=== PATIENT | male | born 1930 | race Asian ===

== ENCOUNTER 2017-05-31 16:14 | Emergency (ER) | payer OTHER, MEDICARE ==
[2017-05-31 16:41] VITALS: BP 138/87
[2017-05-31 17:16] LABS: Basophils % (Auto) 0.5 % (0.0-1.8); Eosinophils % (Auto) 0.8 % (0.0-4.3); Hematocrit 40.9 % (35.5-45.6); Hemoglobin 13.9 gm/dl (11.8-15.2); Mean Corpuscular HGB Conc 34 % (32-34); Mean Corpuscular Hemoglobin 31 pg (28-32); Mean Corpuscular Volume 90 fl (84-94); Platelet Count 172 K/mm3 (140-440); Red Blood Count 4.53 M/mm3 (3.65-5.03); Red Cell Distribution Width 12.9 % (13.2-15.2); White Blood Count 4.8 K/mm3 (4.5-11.0)
[2017-05-31 17:31] LABS: Anion Gap 19 mmol/L; Blood Urea Nitrogen 12 mg/dL (9-20); Calcium 9.3 mg/dL (8.4-10.2); Carbon Dioxide 23 mmol/L (22-30); Chloride 94.4 mmol/L (98-107); Glucose 102 mg/dL (75-100); Potassium 3.9 mmol/L (3.6-5.0); Sodium 132 mmol/L (137-145)
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
[2017-05-31] MEDS: TYLENOL PO ONE (18:17)
[2017-05-31] MEDS: ZOFRAN ODT PO ONE (18:17)
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
== END 2017-05-31 19:27 | disposition home or self-care (01) ==
LOC: ED 16:14
DX: M54.2 Cervicalgia (principal); I10 Essential (primary) hypertension; K21.9 Gastro-esophageal reflux disease without esophagitis; E78.00 Pure hypercholesterolemia, unspecified; Z87.891 Personal history of nicotine dependence; Z85.038 Personal history of other malignant neoplasm of large intestine; Z88.2 Allergy status to sulfonamides; V89.0XXA Person injured in unspecified motor-vehicle accident, nontraffic, initial encounter; Y93.89 Activity, other specified; Y92.89 Other specified places as the place of occurrence of the external cause; Y99.8 Other external cause status
CPT/HCPCS: 36415; 70450; 72125; 80048; 85025; 93005; 93010; 99284; Q0162

== ENCOUNTER 2017-07-24 12:42 | Day surgery (SDC) | payer MEDICARE ==
--- NOTE | 2017-07-24 13:41 | Anesthesia Consultation ---
Anesthesia Consult and Med Hx Date of service: 07/24/17 - Airway Anesthetic Teeth Evaluation: Good ROM Head & Neck: Adequate Mental/Hyoid Distance: Adequate Mallampati Class: Class I Intubation Access Assessment: Probably Good - Pulmonary Exam CTA: Yes - Cardiac Exam Cardiac Exam: RRR - Pre-Operative Health Status ASA Pre-Surgery Classification: ASA3 Proposed Anesthetic Plan: MAC - Pulmonary Hx Smoking: No Hx Sleep Apnea: Yes (wears a device that is not a cpap ) - Cardiovascular System Hx Hypertension: Yes Hx Heart Murmur: Yes - Additional Comments Anesthesia Medical History Comments: says mucus comes up, no reflux or gerd, high cholest,
--- NOTE | 2017-07-24 13:41 | Anesthesia Day of Surgery ---
Anesthesia Day of Surgery - Day of Surgery Patient Examined: Yes Patient H&P Reviewed: Yes Patient is NPO: Yes
[2017-07-24] MEDS ORDERED: WATER FOR IRRIG STERILE IR ONE (14:08)
[2017-07-24] MEDS ORDERED: NACL 0.9% 1000 ML 1,000 ML IV SCH (15:00)
[2017-07-24] MEDS ORDERED: DIPRIVAN 10 MG/ML IV ONE ×3 (15:17)
--- NOTE | 2017-07-24 15:23 | Post Anesthesia Evaluation ---
- Post Anesthesia Evaluation Patient Participated: Yes Airway Patent: Yes Stable Respiratory Function: Yes Nausea/Vomiting: No Temp > 96.8F: Yes Pain Manageable: Yes Adequeate Hydration: Yes Anesthesia Complications: No Block Receding Appropriately: Not Applicable Patient on Ventilator: No
[2017-07-24] MEDS ORDERED: XYLOCAINE MPF 2% ONE (15:30)
--- NOTE | 2017-07-24 16:07 | Operative Report ---
Operative Report Operative Report: Date of procedure: 07/24/2017 Procedure: Colonoscopy. Attending physician: Earnest Dyson MD [employer] Drawer Hand: Earnest Dyson MD Indication: Patient is a 86-year-old male who presents for colonoscopy for colorectal cancer screening. 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 He lately has had progressive constipation with bloating and intestinal gas. A colonoscopy serves to evaluate patient so that treatment may be directed based on the findings. Consent: Informed consent was obtained after advising the patient and family regarding nature of this procedure, its indications, potential benefits as well as possible complications including but not limited to bleeding perforation and adverse reaction to medication, infection as well as other cardiopulmonary complications. An informed written and verbal consent was then obtained after due opportunity was provided for questions and answers. Monitoring: Patient was monitored continuously with pulse oximetry and electrocardiographic recordings as well as blood pressure recordings. Vital signs remained stable throughout this procedure with no untoward events. Preoperative assessment: Patient was assessed immediately prior to this procedure for capacity to tolerate monitored anesthesia care and moderate sedation as well as general anesthesia. Patient's ASA classification is 2, Mallampati class is 2, Hyomental distance is 3. Instrument: Gimmien video colonoscope Medications: Propofol given intravenously in divided doses. For details please refer to anesthesia records. Description of procedure: Patient was placed in the left lateral decubitus position after achieving sedation, a digital rectal examination was performed following which the colonoscope was introduced into the anal verge and advanced to the cecum /ileal cecal anastomosis, which was identified by the the appendiceal orifice, as well as by the cecal strap and direct transillumination. The colonoscope was subsequently withdrawn with careful inspection of all mucosal surfaces. Patient tolerated this procedure well and was subsequently taken to the recovery room. The following findings were noted. Findings: Patient had a few scattered diverticula in the sigmoid colon. The entirety of the colon otherwise to the cecum was normal. On the retroflex view at the anal verge, patient had internal hemorrhoids. Impression: Mild colonic diverticulosis Internal hemorrhoids. Plan: High-fiber diet. Use as needed stool softeners and laxatives. Additional steps will be taken in outpatient follow-up.
--- NOTE | 2017-07-24 16:10 | Operative Report ---
Operative Report Operative Report: Date of procedure: 07/24/2017 Procedure: Esophagogastroduodenoscopy with multiple mucosal biopsies Attending physician: Earnest Dyson MD Certified Low Vision Therapist: Earnest Dyson MD Indication: Patient is an 86-year-old male who presented with a history of epigastric discomfort, dyspepsia with early satiety with bloating and intestinal gas. An upper endoscopy is done to evaluate patient so that treatment would be directed based on the findings Consent: Informed consent was obtained after advising the patient and family regarding nature of this procedure, its indications, potential benefits as well as possible complications including but not limited to bleeding perforation and adverse reaction to medication, infection as well as other cardiopulmonary complications. An informed written and verbal consent was then obtained after due opportunity was provided for questions and answers. Monitoring: Patient was monitored continuously with pulse oximetry and electrocardiographic recordings as well as blood pressure recordings. Vital signs remained stable throughout this procedure with no untoward events. Preoperative assessment: Patient was assessed immediately prior to this procedure for capacity to tolerate monitored anesthesia care and moderate sedation as well as general anesthesia. Patient's ASA classification is 2, Mallampati class is 2, Hyomental distance is 3. Instrument: ClearStarn video endoscope Medications: Propofol given intravenously in divided doses. For details please refer to anesthesia records. Description of procedure: Patient was placed in the left lateral decubitus position after achieving sedation, the endoscope was introduced into the esophagus under direct vision. It was then advanced beyond the esophagus into the stomach and then beyond the stomach into the duodenum and to the second portion of the duodenum. It was subsequently withdrawn with careful inspection of all mucosal surfaces with the following findings. Findings: Patient had multiple mild erythema and erosions in the distal esophagus suggestive mild erosive esophagitis. In the proximal to midesophagus , there were small white plaques with an endoscopic appearance, suggestive of possible mild nicole esophagitis. There was a small hiatal hernia seen on entering to the stomach. There was erythema in the gastric antrum. Biopsies were obtained from the antrum to rule out gastritis. The duodenum was normal to second portion. Impression: Mild erosive esophagitis Possible mild nicole esophagitis Hiatal hernia Gastric antral erythema Plan: Continue treatment proton pump inhibitors Treat with Nystatin swish and swallow Observe antireflux measures Follow the pathology report from the gastric antral biopsies and direct additional treatment based on the pathology report.
[2017-07-24 16:46] VITALS: BP 137/89
== END 2017-07-24 12:43 | disposition home or self-care (01) ==
LOC: GIO 12:42
PROVIDERS: ATTEND Internal Medicine Gastroenterology
DX: K44.9 Diaphragmatic hernia without obstruction or gangrene (principal); K31.89 Other diseases of stomach and duodenum; K57.30 Diverticulosis of large intestine without perforation or abscess without bleeding; K64.8 Other hemorrhoids; I10 Essential (primary) hypertension; E78.00 Pure hypercholesterolemia, unspecified; G47.33 Obstructive sleep apnea (adult) (pediatric); Z85.038 Personal history of other malignant neoplasm of large intestine; Z88.2 Allergy status to sulfonamides; Z90.49 Acquired absence of other specified parts of digestive tract
CPT/HCPCS: 43239; 45378; 82962; 88305; 88342; J2704; J7030